=== PATIENT | male | born 1970 | race Caucasian/White ===

== ENCOUNTER 2017-04-01 10:32 | Observation (INO) ==
--- NOTE | 2017-04-01 13:32 | Urology - Consult Note ---
Date of Encounter: 04/01/17 Time of Encounter: 13:30 - Assessment and Plan (1) Left ureteral stone Current Visit: Yes Status: Acute Assessment and plan: to or today for stone extraction (2) Elevated serum creatinine Current Visit: Yes Status: Acute Assessment and plan: likely will improve with removal of stone. Urology CN:HPI Consult date: 04/01/17 Reason for consult Urology: Other (left ureteral stone) Requesting physician: Brodie Saleem History of present illness: Bhavik is a 46 yo male with history of left flank pain, n/v for past 3 days. transferred here for further care. 3mm left UVJ stone. Review of Systems - Constitutional no chills - EENT Nose, mouth and throat: no dizziness - Cardiovascular no chest pain Exam - General physical appearance Present: well developed - Cardiovascular Cardiovascular exam IM: RRR Urology Results - Labs All other labs normal. Consult Discharge Plan - Plan Referrals: Bay Brumfield MD [Primary Care Provider] - Betsy Caraballo [Family Provider] -
[2017-04-01] MEDS ORDERED: *HR* FentaNYL (PF) 100 MCG/2 ML VIAL ONE (13:49)
[2017-04-01] MEDS ORDERED: *HR* Propofol 200 MG/20 ML VIAL IVP ONE ×2 (13:49→14:13)
[2017-04-01] MEDS ORDERED: Lidocaine -MPF 2% 2 ML VIAL ONE (13:49)
[2017-04-01] MEDS ORDERED: *HR* Midazolam HCl 2 MG/2 ML VIAL ONE (13:49)
--- NOTE | 2017-04-01 13:54 | Anesthesia Evaluation PreOp ---
Date of Encounter: 04/01/17 Time of Encounter: 13:51 - Past History Planned Operation: left USE with laser Cardiac History: Denies any Significant Hx Pulmonary History: Denies Any Significant HX DAMASCENER History: Denies Any Significant HX Other Medical History: Denies Any Significant HX Anesthesia History: No Prior Anesthetic Complications (vasectomy with MAC) Alcohol Use: none Drug use: none Medications and Allergies Ondansetron ODT [Zofran ODT] 4 mg PO Q4H PRN 04/01/17 [History] OxyCODONE/APAP 5/325 [Percocet 5/325 MG] 1 tab PO Q6H PRN 04/01/17 [History] Tramadol HCl [Ultram] 50 mg PO Q6-8H PRN 04/01/17 [History] - Meds/Allergy Pre-op Review Medications Reviewed: Yes Allergies Reviewed: Yes Beta Blockers on Current Med List: No Anesthesia Exam - HEENT Pupil (Motor): EOMI Mallampati: II Teeth: Normal Oral Opening: Greater than 3 - DAMASCENER LOC: Oriented DAMASCENER Motor: Normal RUE, Normal LUE, Normal RLE, Normal LLE, Normal Face DAMASCENER Sensory: Normal: RUE, LUE, RLE, LLE, Face - Cardiac Rhythm: Regular Murmur: None - Pulmonary Breath Sounds: bilateral Clear Respiratory Effort: Symmetrical Anesthesia Assess/Plan ASA Score: 1 Modified Burnside Scale for Level of Consciousness: Cooperative, oriented, and tranquil Anesthetic Plan: General Monitoring Plan: Standard Monitors Recovery Plan: PACU (discussed GA, agrees to proceed)
[2017-04-01] MEDS ORDERED: *HR* Promethazine 25 MG/ML VIAL IVP PRN (14:16)
[2017-04-01] MEDS ORDERED: *HR* HYDROmorphone (PF) 1 MG/ML SYRINGE IVP PRN ×2 (14:16→15:46)
--- NOTE | 2017-04-01 15:01 | Operative Note ---
Date of procedure: 04/01/17 Pre-op diagnosis: left distal ureteral stone Post-op diagnosis: same Procedure: Left ureteroscopic basket retrieval of stone fragment, left 4.8 x 28 cm ureteral stent placement Anesthesia: GETA Surgeon: Sheldon Lundberg Condition: stable Disposition: PACU Procedure in Detail: Patient was prepped and draped in normal sterile fashion. Timeout procedure performed. I then inserted the cystoscope in the patient's bladder. The left ureteral orifice was cannulated using a sensor wire. 8/10 dilation sheath was then used to dilate the distal ureter. I then placed a semirigid ureteroscope into the distal ureter. Encountered a 3-4 mm stone. The basket device was then used to remove the stone in its entirety. I then fed a 4.8 x 28 cm ureteral stent over the wire in the left kidney. Good curl was seen in the left kidney and in the bladder. Bladder was drained and procedure was ended. A string was left for easy removal in 2-3 days. I instructed the how to do this.
--- NOTE | 2017-04-01 15:29 | Anesthesia Evaluation Post Op ---
Date of Encounter: 04/01/17 Time of Encounter: 15:28 - Vital Signs Vital Signs: Selected Entries 04/01/17 14:59 04/01/17 15:19 Temperature 98.7 F Pulse Rate 73 Respiratory Rate 18 Blood Pressure 152/92 O2 Sat by Pulse Oximetry 96 - Lungs Lungs: Clear Ascult./Percussion - Airway Airway: Non-obstructed - Cardiovascular Regular Rate - Mental Status Mental Status: Alert & Oriented, Answers Appropriately - Pain Pain Scale: 0 Pain Scale used: Numeric (1 - 10) - Nausea Vomiting Nausea Vomiting: Not Present - Hydration Hydration: Ice chips, Has not voided - Discharge PostOp Status: Transfer Patient to floor
[2017-04-01] MEDS ORDERED: *HR* HYDROcodone/Acet 5/325 mg TABLET PO PRN (15:46)
[2017-04-01] MEDS ORDERED: Ondansetron 4 MG/2 ML VIAL IVP PRN (15:46)
[2017-04-01] MEDS ORDERED: Naloxone 0.4 MG/ML INJ IVP PRN (15:46)
[2017-04-01] MEDS ORDERED: Acetaminophen 325 MG TABLET PO PRN (15:46)
[2017-04-01 16:26] LABS: Basophils % 0.2 %; Hemoglobin 14.5 g/dL (12.9-16.9); Immature Granulocytes % 0.5 % (0-4); Lymphocytes # 0.9 K/mcL (0.6-4.6); Lymphocytes % 6.3 %; Mean Platelet Volume 10.3 fL (9.4-12.4); Monocytes # 0.9 K/mcL (0.0-1.3); Monocytes % 6.1 %; Neutrophils # 12.6 K/mcL (1.6-8.9); Platelet Count 217 K/mcL (140-400); Red Cell Distribution Width 12.9 % (11.5-14.5); Segmented Neutrophils % 86.9 %
[2017-04-01 16:38] LABS: Albumin 2.9 g/dL (3.5-5.0); Albumin/Globulin Ratio 0.7 (1.1-2.2); Bilirubin,Total 0.9 mg/dL (0.2-1.2); Calcium 9.1 mg/dL (8.6-10.8); Globulin 4.4 g/dL (2.4-3.5); Total Protein 7.3 g/dL (6.0-8.3)
[2017-04-01 16:39] LABS: Potassium 4.2 mEq/L (3.5-4.5)
[2017-04-01 16:42] LABS: Hemoglobin A1C 5.9 %
--- NOTE | 2017-04-01 17:24 | Internal Med History&Physical ---
Date of Encounter: 04/01/17 Time of Encounter: 14:00 Assessment and Plan (1) Elevated serum creatinine Current visit: Yes Status: Acute Acutely elevated serum creatinine of 1.90 post-op d/t JOSE CARLOS from renal stone versus dehydration. Pt. states he has not really eaten or had much to drink since Thursday. Will monitor f/u labs and administer IV 0.9 NS @ 75 mL/HR for re- hydration. Pt. is at moderate risk for further renal issues based on current GFR and JOSE CARLOS, renal stone hx, and risk factor of pre-diabetes. Observation. (2) Leukocytosis Current visit: Yes Status: Acute Acute leukocytosis with WBC of 14.5 post-op most likely reactive d/t renal stone and JOSE CARLOS. Pt. was given Ancef pre-operatively. Pt. is currently afebrile and asymptomatic for infection. Monitor for infection through f/u labs in a.m. Will administer abx if warranted. Qualifiers: Leukocytosis type: unspecified Qualified Code(s): D72.829 - Elevated white blood cell count, unspecified (3) JOSE CARLOS (acute kidney injury) Current visit: Yes Status: Acute Acute kidney injury based on current creatinine of 1.90, GFR of 46, and recent left uretal stone removal. Pt. reports he has not eaten or had much to drink since Thursday. Will re-hydrate w/0.9 NS @ 75 mL/HR and avoid nephrotoxins. Monitor I&O and f/u labs. (4) Pre-diabetes Current visit: Yes Status: Acute Pre-diabetes status based on A1c of 5.9 and current BG of 125. Pt. denies hx of diabetes but has familial hx in both parents and siblings. Pt. should f/u w/PCP regarding pre-diabetes status based on risk factors. (5) Bradycardia Current visit: Yes Status: Chronic Hx of bradycardia. Pt. states he always has low HR. Familial hx of HTN, [place], and DM. EKG today shows sinus bradycardia and nonspecific T-wave abnormality. Continuous cardiac telemetry. Echocardiogram ordered. (6) Left ureteral stone Current visit: Yes Status: Resolved Acute left uretal stone that was removed today w/o complications. Pt. states he is currently pain-free. GFR of 46 and creatinine of 1.90 post-op. Will avoid nephrotoxins. Hydrate w/IV 0.9 NS @ 75 mL/HR. Monitor I&O and daily weight. Stair-step pain medications ordered for pain mgmt. (7) DVT prophylaxis Current visit: Yes Status: Acute Bilateral SCDs on LEs for DVT prophylaxis. Pharmacologic DVT prophylaxis contraindicated due to post-op status. Internal Medicine - H&P: HPI Chief complaint: Renal stone Admitted From: Emergency Dept Plans for Post Hospital Care: Home History of present illness: Mr. Amezcua is a 46 year old male with medical hx of renal stone presents from surgery for renal stone removal. He reports that he has a hx of low HR. Current EKG shows bradycardia w/HR of 53 bpm and non-specific T-wave abnormality. Pt. states that he is having no pain currently post-surgery. He denies hx of smoking , alcohol, or drug use. He also denies recent illness, nausea, vomiting, fever, chills, headache, changes in vision, abdominal pain, flank pain, chest pain, palpitations, unusual bleeding, diarrhea, constipation, dizziness, lightheadedness, pre-syncope, or syncope. Past Med Surg Social Fam HX - Past Medical History Source: patient, old records reviewed, obtained from family Medical history: kidney stones Psychiatric history: no psych history - Past Surgical History Surgical History: vasectomy - Social History Smoking Status: Never smoker Smokeless Tobacco Status: No Alcohol use: none Drug use: none Occupational status: employed Current living situation: Home, With Family Activity Level: Independent ambulation, Very active Recent Out of Country Travel Within the Last 8 Weeks: No Exposure or Possible Exposure to Illness During Travel: No - Family History Father Race: Family Member Ethnicity: Non- Living Status: Age at : 70 Cause of : [place] Hx Family Cardiac Disorders: Yes ([place], CAD, HTN) Hx Family Endocrine Disorder: Yes (DM) Mother Race: Family Member Ethnicity: Non- Living Status: Still Living Hx Family Cardiac Disorders: Yes (HTN) Hx Family Endocrine Disorder: Yes (DM) Brother Race: Family Member Ethnicity: Non- Living Status: Still Living Hx Family Cardiac Disorders: Yes (HTN) Hx Family Endocrine Disorder: Yes (DM) Sister Race: Family Member Ethnicity: Non- Living Status: Still Living Hx Family Endocrine Disorder: Yes (DM) Internal Medicine - H&P: Meds Ondansetron ODT [Zofran ODT] 4 mg PO Q4H PRN 04/01/17 [History] OxyCODONE/APAP 5/325 [Percocet 5/325 MG] 1 tab PO Q6H PRN 04/01/17 [History] Tramadol HCl [Ultram] 50 mg PO Q6-8H PRN 04/01/17 [History] 3 Allergy/AdvReac Type Severity Reaction Status Date / Time No Known Allergies Allergy Verified 04/01/17 15:15 All Systems PM: A 10-system review of systems was performed and is negative for pertinent findings except as documented above in the HPI. - Constitutional Constitutional: no chills, no fever(s), no night sweats - EENT Eyes: no change in vision, no discharge, no pain, no photophobia Ears: no ear discharge, no ear pain, no tinnitus Nose, mouth and throat: no dysphagia, no nasal discharge, no neck pain, no sore throat - Breasts Breasts: as per HPI - Cardiovascular Cardiovascular ROS IM: no chest pain, no diaphoresis, no dyspnea, no lightheadedness, no palpitations, no syncope - Respiratory Respiratory: no cough, no dyspnea, no wheezing, no excessive phlegm production - Gastrointestinal Gastrointestinal: no abdominal pain, no diarrhea, no hematemesis, no hematochezia, no melena, no nausea, no vomiting - Genitourinary Genitourinary ROS male: as per HPI - Musculoskeletal Musculoskeletal ROS IM: no numbness, no tingling - Integumentary Integumentary IM: no rash, no unusual bruising - Neurological Neurological ROS: no confusion, no convulsions, no focal weakness, no numbness, no tingling, no tremor(s) - Psychiatric Psychiatric: as per HPI - Endocrine Endocrine IM: as per HPI - Hematologic/Lymphatic Hematologic/Lymphatic: no easy bruising - Allergic/Immunologic Allergic/Immunologic: as per HPI - Constitutional Vitals: Temp Pulse Resp BP Pulse Ox 98.7 F 64 16 140/78 98 04/01/17 16:17 04/01/17 16:17 04/01/17 16:17 04/01/17 16:17 04/01/17 16:17 General appearance: Present: cooperative, A&O X 3, pleasant, no acute distress, obese, answers questions appropriately - Head Head exam: Present: atraumatic, normal inspection, normocephalic - Eye Eye exam: Present: PERRL, conjuntiva pink, sclera anicteric Pupils: Present: PERRL - ENT ENT exam: Present: normal exam, normal external ear exam - Neck Neck exam general surgery: Present: normal inspection, supple, trachea midline. Absent: lymphadenopathy - Respiratory Respiratory exam: Present: CTAB. Absent: accessory muscle use, rales, rhonchi, wheezes - Cardiovascular Cardiovascular exam: Present: bradycardia, +S1, +S2 - GI/Abdominal GI/Abdominal exam: Present: normal bowel sounds, soft, no peritoneal signs. Absent: distended, tenderness - Rectal Rectal exam: Present: deferred - Additional comments: exam deferred. - Extremities Exam Extremities exam: Present: warm, radial pulses palpable and symmetrical. Absent : calf tenderness, cyanotic, pedal edema - Back Exam Back exam: Present: normal inspection - Neurological Exam Neurological exam: Present: CN II-XII intact, oriented X3, no focal deficits. Absent: pronater drift, facial droop, speech deficit - Psychiatric Psychiatric exam: Present: normal affect, normal mood - Skin Skin exam: Present: dry, intact Internal Med - H&P Results - Labs CBC & Chem 7: 04/01/17 16:16 04/01/17 16:16 Labs: Short CBC 04/01/17 Range/Units 16:16 WBC 14.5 H (4.3-11.1) K/mcL Hgb 14.5 (12.9-16.9) g/dL Hct 44.0 (37.5-50.1) % Plt Count 217 (140-400) K/mcL Neutrophils # 12.6 H (1.6-8.9) K/mcL BMP 04/01/17 16:16 Sodium 136 Potassium 4.2 Chloride 102 Carbon Dioxide 23 BUN 18 Creatinine 1.90 H Glucose 125 H Calcium 9.1 Liver Function 04/01/17 Range/Units 16:16 Total Bilirubin 0.9 (0.2-1.2) mg/dL AST 14 (5-34) Units/L ALT 12 (0-55) Units/L Alkaline Phosphatase 65 (38-126) Units/L Albumin 2.9 L (3.5-5.0) g/dL - EKG Data EKG shows normal: sinus rhythm Rate: bradycardia - EKG Data Prior EKG available for review: no EKG comments: 04/01/17 17:35 EKG dated 04/01/17 shows sinus bradycardia with nonspecific T-wave abnormality. Borderline ECG. - Impressions ITS Impressions Fluoroscopy 04/01/17 00:00 IMPRESSION: Intraprocedural fluoroscopic spot images as above. See separate procedure report for more information. D/ / 04/01/2017 15:22:44 Brianna Neal MD / karin Interpreting Provider: Brianna Neal MD KUB X-Ray 04/01/17 00:00 IMPRESSION: Intraprocedural fluoroscopic spot images as above. See separate procedure report for more information. D/ / 04/01/2017 15:22:44 Brianna Neal MD / karin Interpreting Provider: Brianna Neal MD - VTE Documentation of Mechanical Device: Intermittent pneumatic compression device
--- NOTE | 2017-04-01 17:57 | Event Note ---
Date of Encounter: 04/01/17 Time of Encounter: 17:55 46/male Was transferred from [facility]. Admitted for hydronephrosis secondary to the UVJ stone obstruction. Urology on the board. Patient underwent surgery. Slightly elevated creatinine. Plan: Admit as observation. Intravenous fluids 70 mL/h for next 12 hours. Repeat labs tomorrow morning. If clinically stable and follow the recommendations from urology.
[2017-04-01] MEDS: 0.9 % Sodium Chloride 1,000 ML IVC SCH (18:52)
[2017-04-02 04:45] LABS: Basophils % 0.1 %; Hematocrit 40.5 % (37.5-50.1); Hemoglobin 13.4 g/dL (12.9-16.9); Immature Granulocytes % 0.3 % (0-4); Lymphocytes % 7.1 %; Mean Corpuscular HGB Conc 33.1 g/dL (31.6-35.5); Mean Corpuscular Hemoglobin 28.5 pg (28.0-33.3); Mean Platelet Volume 10.7 fL (9.4-12.4); Monocytes # 0.9 K/mcL (0.0-1.3); Neutrophils # 11.5 K/mcL (1.6-8.9); Platelet Count 231 K/mcL (140-400); Red Blood Count 4.71 M/mcL (4.19-5.50); Red Cell Distribution Width 12.9 % (11.5-14.5); Segmented Neutrophils % 85.5 %
[2017-04-02 04:54] LABS: INR 1.2; Prothrombin Time 12.9 Seconds (9.4-12.1)
[2017-04-02 04:57] LABS: Activated Partial Thrombo Time 28.5 Seconds (26.0-36.0)
[2017-04-02 05:05] LABS: Alanine Aminotransferase 17 Units/L (0-55); Albumin 2.7 g/dL (3.5-5.0); Albumin/Globulin Ratio 0.6 (1.1-2.2); Alkaline Phosphatase 63 Units/L (38-126); Aspartate Amino Transferase 14 Units/L (5-34); BUN/Creatinine Ratio 14 (6-26); Bilirubin,Total 0.7 mg/dL (0.2-1.2); Blood Urea Nitrogen 19 mg/dL (8-26); Calcium 9.5 mg/dL (8.6-10.8); Carbon Dioxide 27 mEq/L (19-29); Chloride 105 mEq/L (98-109); Chol/HDL Ratio 4.6 (0-4.9); Cholesterol 199 mg/dL (< 200); Globulin 4.2 g/dL (2.4-3.5); Glucose 157 mg/dL (70-99); HDL Cholesterol 43 mg/dL (40-59); LDL Cholesterol,Calculated 135 mg/dL (0-99); Magnesium 2.1 mg/dL (1.6-2.6); Osmolality,Calculated 294 (280-300); Potassium 4.1 mEq/L (3.5-4.5); Sodium 139 mEq/L (136-145); Total Protein 6.9 g/dL (6.0-8.3); Triglycerides 106 mg/dL (< 150); eGFR For African Americans > 60 (> 60); eGFR For Non-African Americans 58 (> 60)
[2017-04-02] MEDS: 0.9 % Sodium Chloride 1,000 ML IVC SCH ×2 (08:55→19:57)
--- NOTE | 2017-04-02 11:36 | Discharge Summary ---
Date of Encounter: 04/02/17 Time of Encounter: 11:33 - Discharge Diagnosis (1) Obstructive uropathy Priority: Primary Status: Acute (2) Left ureteral stone Priority: Secondary Status: Resolved (3) JOSE CARLOS (acute kidney injury) Priority: Secondary Status: Acute - Discharge Medications Home Medications: Ondansetron ODT [Zofran ODT] 4 mg PO Q4H PRN 04/01/17 [History] OxyCODONE/APAP 5/325 [Percocet 5/325 MG] 1 tab PO Q6H PRN 04/01/17 [History] Tramadol HCl [Ultram] 50 mg PO Q6-8H PRN 04/01/17 [History] Acetaminophen [Tylenol] 650 mg PO Q6HR PRN tablet 04/02/17 [Rx] Allergies/Adverse Reactions: 3 Allergy/AdvReac Type Severity Reaction Status Date / Time No Known Allergies Allergy Verified 04/01/17 15:15 Procedures/tests Complete & Pending: Procedures Performed prior 72 hours Category Date Time Status EV echocardiogram Stat Y 04/01/17 18:05 Completed Date of admission: 04/01/17 12:58 Primary care physician: Bay Brumfield MD Discharging clinician: Dianelys Sauer Anticipated date of discharge: 04/03/17 - Patient Status Disposition: Home, Self-Care Functional capacity at discharge: independent ambulation Overall status at discharge: patient is progressing back to baseline - Discharge Instructions Follow Up With: Sheldon Lundberg MD [Partnered Physician] - 04/21/17 11:00 am Bay Brumfield MD [Primary Care Provider] - - Diet and Activity Activity: resume usual activities as tolerated Diet: advance to your usual diet Hospital course: Mr. Amezcua is a 46 year old male admitted for obstructive uropathy secondary to left UVJ stone causing rise in creatinine and acute kidney injury. Urology was consulted and patient underwent cystoscopic stone removal as well as ureteric stent placement. Urology plans to follow as outpatient. Patient's renal function had started improving. White count was elevated but no antibiotic started. Continue IV hydration and as number improves patient plans to be discharged. - Time Spent with Patient Total time spent providing and/or coordinating discharge services: Greater than 30 minutes - Constitutional Vitals: Temp Pulse Resp BP Pulse Ox 98.8 F 85 14 121/70 97 04/02/17 10:16 11/23/17 10:16 04/02/17 10:16 04/02/17 10:16 04/02/17 10:16 General appearance: Present: cooperative, A&O X 3, pleasant, no acute distress, obese, answers questions appropriately - Head Head exam: Present: atraumatic, normocephalic - Eye Eye exam: Present: PERRL, conjuntiva pink, sclera anicteric Pupils: Present: PERRL - Neck Neck exam general surgery: Present: supple, trachea midline. Absent: lymphadenopathy - Respiratory Respiratory exam: Present: CTAB. Absent: accessory muscle use, rales, rhonchi, wheezes - Cardiovascular Cardiovascular exam: Present: RRR, +S1, +S2. Absent: diastolic murmur, gallop, rubs, systolic murmur - GI/Abdominal GI/Abdominal exam: Present: normal bowel sounds, soft, no peritoneal signs. Absent: distended, tenderness - Extremities Exam Extremities exam: Present: warm, radial pulses palpable and symmetrical. Absent : calf tenderness, cyanotic, pedal edema - Neurological Exam Neurological exam: Present: CN II-XII intact, oriented X3, no focal deficits. Absent: pronater drift, facial droop, speech deficit - Skin Skin exam: Present: dry, intact - VTE Documentation of Mechanical Device: Intermittent pneumatic compression device
[2017-04-03] MEDS: 0.9 % Sodium Chloride 1,000 ML IVC SCH (01:53)
[2017-04-03 06:13] LABS: Basophils % 0.2 %; Eosinophils % 0.3 %; Hematocrit 36.4 % (37.5-50.1); Immature Granulocytes % 0.3 % (0-4); Lymphocytes # 3.5 K/mcL (0.6-4.6); Lymphocytes % 31.8 %; Mean Corpuscular HGB Conc 32.4 g/dL (31.6-35.5); Mean Corpuscular Hemoglobin 28.4 pg (28.0-33.3); Mean Corpuscular Volume 87.7 fL (83.0-100.0); Monocytes # 0.8 K/mcL (0.0-1.3); Monocytes % 7.3 %; Neutrophils # 6.7 K/mcL (1.6-8.9); Platelet Count 242 K/mcL (140-400); Red Blood Count 4.15 M/mcL (4.19-5.50); Red Cell Distribution Width 13.1 % (11.5-14.5); Segmented Neutrophils % 60.1 %
[2017-04-03 06:24] LABS: Hemoglobin 11.8 g/dL (12.9-16.9)
[2017-04-03 06:34] LABS: Alanine Aminotransferase 24 Units/L (0-55); Albumin 2.4 g/dL (3.5-5.0); Albumin/Globulin Ratio 0.6 (1.1-2.2); Alkaline Phosphatase 53 Units/L (38-126); Aspartate Amino Transferase 18 Units/L (5-34); BUN/Creatinine Ratio 16 (6-26); Bilirubin,Total 0.6 mg/dL (0.2-1.2); Blood Urea Nitrogen 16 mg/dL (8-26); Calcium 8.6 mg/dL (8.6-10.8); Carbon Dioxide 26 mEq/L (19-29); Chloride 109 mEq/L (98-109); Globulin 3.7 g/dL (2.4-3.5); Glucose 125 mg/dL (70-99); Osmolality,Calculated 295 (280-300); Potassium 3.8 mEq/L (3.5-4.5); Sodium 141 mEq/L (136-145); Total Protein 6.1 g/dL (6.0-8.3); eGFR For African Americans > 60 (> 60); eGFR For Non-African Americans > 60 (> 60)
[2017-04-03 10:08] VITALS: BP 151/84
--- NOTE | 2017-04-03 10:23 | Discharge Summary ---
Date of Encounter: 04/03/17 Time of Encounter: 10:20 - Discharge Diagnosis (1) Obstructive uropathy Priority: Primary Status: Acute (2) Left ureteral stone Priority: Secondary Status: Resolved (3) JOSE CARLOS (acute kidney injury) Priority: Secondary Status: Acute - Discharge Medications Home Medications: Ondansetron ODT [Zofran ODT] 4 mg PO Q4H PRN 04/01/17 [History] OxyCODONE/APAP 5/325 [Percocet 5/325 MG] 1 tab PO Q6H PRN 04/01/17 [History] Tramadol HCl [Ultram] 50 mg PO Q6-8H PRN 04/01/17 [History] Acetaminophen [Tylenol] 650 mg PO Q6HR PRN tablet 04/02/17 [Rx] Allergies/Adverse Reactions: 3 Allergy/AdvReac Type Severity Reaction Status Date / Time No Known Allergies Allergy Verified 04/01/17 15:15 Procedures/tests Complete & Pending: Procedures Performed prior 72 hours Category Date Time Status EV echocardiogram Stat Y 04/01/17 18:05 Completed Date of admission: 04/01/17 12:58 Primary care physician: Bay Brumfield MD Discharging clinician: Dianelys Sauer Anticipated date of discharge: 04/03/17 - Patient Status Disposition: Home, Self-Care Functional capacity at discharge: independent ambulation Overall status at discharge: patient is progressing back to baseline - Discharge Instructions Follow Up With: Sheldon Lundberg MD [Partnered Physician] - 04/21/17 11:00 am Bay Brumfield MD [Primary Care Provider] - - Diet and Activity Activity: resume usual activities as tolerated Diet: advance to your usual diet Hospital course: Mr. Amezcua is a 46 year old male Mr. Amezcua is a 46 year old male admitted for obstructive uropathy secondary to left UVJ stone , causing rise in creatinine and acute kidney injury. Urology was consulted and patient underwent cystoscopic stone removal as well as ureteric stent placement. Urology plans to follow as outpatient. Patient's renal function and WBC count improved with IV hydration and without use of any antibiotics. Patient will be discharged home with urological and family physician follow-up.. - Time Spent with Patient Total time spent providing and/or coordinating discharge services: Greater than 30 minutes - Constitutional Vitals: Temp Pulse Resp BP Pulse Ox 98.5 F 58 16 151/84 100 04/03/17 10:04 04/03/17 10:04 04/03/17 10:04 04/03/17 10:04 04/03/17 10:04 General appearance: Present: cooperative, A&O X 3, pleasant, no acute distress, obese, answers questions appropriately - VTE Documentation of Mechanical Device: Intermittent pneumatic compression device
[2017-04-03] MEDS ORDERED: FLUARIX QUAD 2017-18 36MOS UP/PF 0.5 ML SYRINGE IM ONE (12:32)
--- NOTE | 2017-04-07 06:08 | Electrocardiograph Report ---
[facility] Test Date: 2017-04-01 Pat Name: Bhavik Amezcua Department: 115 Room: 3A24 Gender: M [employer]: ISABEL : [id number] Requested By: Brodie Saleem Order Number: [id number] Reading MD: Jesus Manuel Cooley DO Measurements Intervals [place] Rate: 53 P: 45 SC: 170 QRS: 21 QRSD: 86 T: 33 QT: 407 QTc: 391 Interpretive Statements SINUS BRADYCARDIA NONSPECIFIC T-WAVE ABNORMALITY Electronically Signed On 04-07-2017 6:07:00 EST by Jesus Manuel Cooley DO
== END 2017-04-03 13:05 | disposition home or self-care (01) ==
LOC: 3ANU
PROVIDERS: ADMIT Internal Medicine; ATTEND Internal Medicine